=== PATIENT | male | born 1935 | race Caucasian/White ===

== ENCOUNTER 2017-02-09 03:57 | Inpatient (IN) | payer MEDICARE, OTHER ==
--- NOTE | ~2017-02-09 | PRECARD ---
H&P [facility] [address] [facility] [place]. [address] NAME: AKILA MCCURDY JR : 35 STATUS : ADM IN [facility]#: [id number] AGE: 81 ADM/REG DATE : 02/09/17 MR#: [id number] REPORT SERV DATE: 02/09/17 DICTATED BY: LEV GRAY DATE: 02/09/17 REPORT STATUS : Draft TRANSCRIBED BY: DEEPIKA DATE: 02/09/17 DATE OF ADMISSION: 02/09/2017 Mr. Akila Mccurdy junior is an 81-year-old gentleman, referred from the emergency room with acute inferior wall myocardial infarction. Mr. Mccurdy has no known coronary artery disease. He does have a history of diabetes. He developed chest discomfort at 1 a.m., the air ambulance was called. Upon their arrival ongoing chest discomfort. Blood pressure about 140/80, heart rate in the 40s. He has had ongoing discomfort in the last 3 hours. He describes 8/10 severity, radiated to the arm, with dyspnea and nausea, subsequent emesis. He has not had discomfort previously. PAST MEDICAL HISTORY: 1. Diabetes. 2. Hydrocephalus with a shunt placed two years ago at [facility]. MEDICINES: Uncertain. SOCIAL HISTORY: Denies alcohol or tobacco. No longer working. He is . FAMILY HISTORY: Noncontributory. REVIEW OF SYSTEMS: Complete review of systems obtained, pertinent negative and unremarkable except as noted above. No melena, hematochezia, or hemoptysis. PHYSICAL EXAMINATION: VITAL SIGNS: Blood pressure 130/80, heart rate 44. GENERAL: He appears acutely ill, pale, diaphoretic. HEENT: No xanthelasma; lips without cyanosis. LUNGS: Clear to auscultation, no wheezes, rales or rhonchi; good breath sounds. COR: No JVD or hepatojugular reflux, no murmurs, rubs or gallops, impulse mid clavicular line without carotid or abdominal bruits; normal S1 and S2. ABDOMEN: Bowel sounds positive, normal activity, without tenderness, masses or hepatosplenomegaly. EXTREMITIES: No edema, cyanosis. SKIN: Normal turgor. MS: Normal muscle strength, without kyphosis/scoliosis. NEURO/PSYCH: Alert and oriented x4, no apparent anxiety or depression. EKG from the field demonstrates sinus rhythm and inferior elevation. EKG could not be obtained yet at [facility], equipment malfunction. ASSESSMENT: Mr. Mccurdy is a very nice 81-year-old gentleman with acute inferior wall H&P PRE [address] [address] NAME: AKILA MCCURDY JR : 35 STATUS : ADM IN [facility]#: [id number] AGE: 81 ADM/REG DATE : 02/09/17 MR#: [id number] REPORT SERV DATE: 02/09/17 DICTATED BY: LEV GRAY DATE: 02/09/17 REPORT STATUS : Draft TRANSCRIBED BY: DEEPIKA DATE: 02/09/17 myocardial infarction and bradycardia. I discussed the risks, benefits, and alternatives of cardiac catheterization, coronary angioplasty, stent placement with Mr. Mccurdy. He understands and requests to proceed. JEVON/DEEPIKA Lev Gray M.D. / [id number] CC: Lev Gray M.D.
--- NOTE | ~2017-02-09 | DS ---
Discharge Summary [facility] [address] [place]. [address] NAME: AKILA NICK JR : 35 STATUS : DIS IN PAT#: [id number] AGE: 81 ADM/REG DATE : 02/09/17 MR#: [id number] REPORT SERV DATE: 02/24/17 DICTATED BY: LEV GRAY DATE: 02/23/17 REPORT STATUS : Draft TRANSCRIBED BY: DEEPIKA DATE: 02/23/17 Data Collection from hospitalization DISCHARGE DIAGNOSES: 1. Acute anterior wall myocardial infarction. 2. Bradycardia. 3. Diabetes mellitus. 4. Hydrocephalus with a shunt placed 2 years ago at [place]. CONSULTATIONS: None. PROCEDURES PERFORMED: Cardiac catheterization and PCI, 02/09/2017. MEDICATIONS: Aspirin 81 mg at bedtime, Sinemet 2 tablets three times a day, Lipitor 40 mg at bedtime, Coreg 3.125 mg twice daily, Plavix 75 mg daily, Pepcid 20 mg daily, Neurontin 100 mg three times a day, Novolin 40 units at bedtime, Novolin R 20 units before meals, levothyroxine sodium 100 mcg daily, Prinivil 5 mg daily, ProAir as needed, prednisone 10 mg taper as directed, Nitrostat 0.4 mg as directed, vitamin C one daily, vitamin E one daily, calcium 1 daily, and Cartia XT 240 mg daily. CONDITION AT DISCHARGE: Upon discharge, he did appear to be doing well and had no complaints. DISPOSITION: He had been discharged home to continue an 1800-calorie ADA diet with activity as discussed. He was to follow up with Dr. London Freeman on 03/04/2017. HOSPITAL COURSE: This 81-year-old male had been referred from the emergency room with an acute inferior wall myocardial infarction. He had no known coronary artery disease. He did have a history of diabetes. He developed chest discomfort at 1 a.m., and the air ambulance was called. Upon their arrival, ( ), ongoing chest discomfort. Blood pressure was about 140/80 and heart rate in the 40s. He had had ongoing chest discomfort in the last three hours, he described an 8/10 severity; this radiated to the arm ( ) with dyspnea and nausea and subsequent emesis. He had not had discomfort previously. He was admitted for further treatment. Upon admission to the hospital, he had been placed on cardiac syrup machine laborer orders. He was then taken to the cardiac syrup machine laborer where he did undergo the above cardiac catheterization and PCI. He did tolerate this well and was transferred to the recovery room. On the day following admission, he had no complaints of chest pain or shortness breath and did state that he had felt great. His lungs were clear to auscultation, and he did appear to be doing well. He was continued on supportive care. On 02/12/2016, he had no complaints of chest pain or shortness of breath and had continued to do well. He was in sinus rhythm. He did remain in stable condition, and on 02/12/2017, it was noted that he had fallen to the floor after hitting his bottom or hip and not hitting the bed. He had no discomfort and no tenderness noted. He did remain in stable condition and was then discharged with the above instructions. Information collected by: Erika Andrews Discharge Summary [address] [address] NAME: AKILA NICK JR : 35 STATUS : DIS IN PAT#: [id number] AGE: 81 ADM/REG DATE : 02/09/17 MR#: [id number] REPORT SERV DATE: 02/24/17 DICTATED BY: LEV GRAY DATE: 02/23/17 REPORT STATUS : Draft TRANSCRIBED BY: DEEPIKA DATE: 02/23/17 I submit the above information as my discharge summary. ADRIA/DEEPIKA Lev Gray M.D. / [id number] CC: Mari Mcfarland M.D.
[~2017-02-09 03:57] MED LIST: ASAB PO; ASPART INSULIN SC; B121000P IM; BACTROINT TOP; DETEMIR INSULIN SC; FLOMAX4 PO; IMDUR60 PO; LANTUS SC; LEVOTHYROXIN100 MCG PO; LIPITOR20 PO; LOP25 PO; MCZ125 PO; MCZ25 PO; NEUR100 PO; NITROSTAT0.4 MG SL; NOVOLOG SC; PEP20 PO; PRILOSEC40 MG PO; RAN500 PO; RAPAFLO PO; X25 PO; X5 PO
[2017-02-09 04:32] LABS: BASOPHILS 0.3 %; BASOPHILS ABSOLUTE 0.04 10/3/uL (0.0-0.16); EOSINOPHILS 3.1 %; ER CBC TAT 0 Hrs 00 Mins; HEMATOCRIT 40.8 % (40.0-51.0); HEMOGLOBIN 13.8 g/dL (13.6-17.8); IMMATURE GRANULOCYTES 0.6 %; IMMATURE GRANULOCYTES ABSOLUTE 0.08 10/3/uL (0.0-0.11); LYMPHOCYTES 27.4 %; LYMPHOCYTES ABSOLUTE 3.53 10/3/uL (0.67-4.30); MEAN CORPUS HGB CONC 33.8 g/dL (32.0-36.0); MEAN CORPUSCULAR VOLUME 91.7 fL (80-100); MEAN PLATELET VOLUME 9.8 fL (9.2-13.0); MONOCYTES 13.1 %; MONOCYTES ABSOLUTE 1.69 10/3/uL (0.21-1.20); NEUTROPHILS 55.5 %; NEUTROPHILS ABSOLUTE 7.16 10/3/uL (2.02-8.40); PLATELET COUNT 272 10/3/uL (150-400); RBC DISTRIBUTION WIDTH 13.1 % (12.0-16.0); RED CELL COUNT 4.45 10/6/uL (4.7-6.1); WHITE BLOOD CELLS 12.9 10/3/uL (4.5-10.5)
[2017-02-09 04:34] LABS: MANUAL DIFF NO %
[2017-02-09 04:44] LABS: PARTIAL THROMBO TIME 24.3 SEC (22.5-37.2); PROTIME (NOT ORD) 13.5 SEC (12.0-14.5)
[2017-02-09 04:50] LABS: BUN (BLOOD UREA NITROGEN) 28 MG/DL (6-23); CALCIUM, SERUM 9.6 MG/DL (8.5-10.4); CHLORIDE, SERUM 104 MMOL/L (96-112); CO2 (CARBON DIOXIDE) 28 MMOL/L (24-34); CREATININE 1.21 MG/DL (0.70-1.30); GFR AFRICAN AMERICAN 65 ML/MIN (>=60); GFR NON AFRICAN AMERICAN 56 ML/MIN (>=60); GLUCOSE, SERUM 129 MG/DL (60-99); SODIUM, SERUM 141 MMOL/L (135-148)
[2017-02-09 04:51] LABS: POTASSIUM, SERUM 4.4 MMOL/L (3.5-5.3)
[2017-02-09 04:52] LABS: CHEST PAIN PROFILE TAT 0 Hrs 01 Mins
[2017-02-09 07:19] LABS: BASOPHILS 0.3 %; BASOPHILS ABSOLUTE 0.04 10/3/uL (0.0-0.16); EOSINOPHILS ABSOLUTE 0.37 10/3/uL (0.0-0.53); HEMATOCRIT 43.1 % (40.0-51.0); HEMOGLOBIN 14.6 g/dL (13.6-17.8); IMMATURE GRANULOCYTES 0.5 %; IMMATURE GRANULOCYTES ABSOLUTE 0.06 10/3/uL (0.0-0.11); LYMPHOCYTES 21.7 %; LYMPHOCYTES ABSOLUTE 2.72 10/3/uL (0.67-4.30); MEAN CORPUS HGB CONC 33.9 g/dL (32.0-36.0); MEAN CORPUSCULAR HEMOGLOB 31.1 pg (26.0-34.0); MEAN CORPUSCULAR VOLUME 91.7 fL (80-100); MEAN PLATELET VOLUME 9.9 fL (9.2-13.0); MONOCYTES 11.4 %; MONOCYTES ABSOLUTE 1.42 10/3/uL (0.21-1.20); NEUTROPHILS 63.1 %; PLATELET COUNT 268 10/3/uL (150-400); RBC DISTRIBUTION WIDTH 13.1 % (12.0-16.0); WHITE BLOOD CELLS 12.5 10/3/uL (4.5-10.5)
[2017-02-09 07:22] LABS: MANUAL DIFF NO %
[2017-02-09 07:37] LABS: BUN (BLOOD UREA NITROGEN) 25 MG/DL (6-23); CALCIUM, SERUM 9.4 MG/DL (8.5-10.4); CHLORIDE, SERUM 100 MMOL/L (96-112); CHOL/HDL RATIO(NOT ORDER) 3.7 (0-5); CHOLESTEROL 191 MG/DL (< 200); CK-MB 32.1 NG/ML; CKMB INDEX (NOT ORD) 7.1; CO2 (CARBON DIOXIDE) 29 MMOL/L (24-34); CPK 451 U/L (0-200); CREATININE 1.17 MG/DL (0.70-1.30); GFR AFRICAN AMERICAN 67 ML/MIN (>=60); GFR NON AFRICAN AMERICAN 58 ML/MIN (>=60); GLUCOSE, SERUM 115 MG/DL (60-99); HDL CHOLESTEROL 52 MG/DL (> 39); LDL CHOLESTEROL 130 MG/DL (< 130); NON-HDL CHOLESTEROL 139 MG/DL (< 160); POTASSIUM, SERUM 3.5 MMOL/L (3.5-5.3); SODIUM, SERUM 137 MMOL/L (135-148); TRIGLYCERIDE 45 MG/DL (< 150)
[2017-02-09 15:13] LABS: BUN (BLOOD UREA NITROGEN) 23 MG/DL (6-23); CHLORIDE, SERUM 96 MMOL/L (96-112); CK-MB 67.8 NG/ML; CKMB INDEX (NOT ORD) 9.8; CO2 (CARBON DIOXIDE) 32 MMOL/L (24-34); CPK 694 U/L (0-200); CREATININE 1.16 MG/DL (0.70-1.30); GFR AFRICAN AMERICAN 68 ML/MIN (>=60); GFR NON AFRICAN AMERICAN 59 ML/MIN (>=60); GLUCOSE, SERUM 276 MG/DL (60-99); POTASSIUM, SERUM 3.8 MMOL/L (3.5-5.3); SODIUM, SERUM 136 MMOL/L (135-148)
[2017-02-09] MEDS ORDERED: P10 PO (17:17)
[2017-02-09] MEDS ORDERED: VITAMIN C PO (17:18)
[2017-02-09] MEDS ORDERED: NITROSTAT0.4 MG SL ×2 (17:18→17:22)
[2017-02-09] MEDS ORDERED: PROAIR HFA PO (17:18)
[2017-02-09] MEDS ORDERED: IMDUR120 PO (17:18)
[2017-02-09] MEDS ORDERED: ASAB PO (17:19)
[2017-02-09] MEDS ORDERED: INSNOVR SC (17:19)
[2017-02-09] MEDS ORDERED: CALCIUM PO (17:19)
[2017-02-09] MEDS ORDERED: VITAMIN E PO (17:19)
[2017-02-09] MEDS ORDERED: CARTIA XT240 MG/24 PO (17:20)
[2017-02-09] MEDS ORDERED: NEUR100 PO (17:20)
[2017-02-09] MEDS ORDERED: INSNOVN SC (17:20)
[2017-02-09] MEDS ORDERED: LEVOTHYROXIN100 MCG PO (17:20)
[2017-02-09] MEDS ORDERED: SIN25 PO (17:21)
[2017-02-09] MEDS ORDERED: LOP25 PO (17:21)
[2017-02-09] MEDS ORDERED: PEP20 PO (17:22)
[2017-02-09 22:38] LABS: CK-MB 38.9 NG/ML
[2017-02-09 22:39] LABS: CKMB INDEX (NOT ORD) 8.3
[2017-02-10 04:52] LABS: CALCIUM, SERUM 9.1 MG/DL (8.5-10.4); CHLORIDE, SERUM 98 MMOL/L (96-112); CK-MB 20.8 NG/ML; CPK 299 U/L (0-200); CREATININE 1.14 MG/DL (0.70-1.30); GFR AFRICAN AMERICAN 70 ML/MIN (>=60); GFR NON AFRICAN AMERICAN 60 ML/MIN (>=60); GLUCOSE, SERUM 249 MG/DL (60-99); POTASSIUM, SERUM 4.3 MMOL/L (3.5-5.3); SODIUM, SERUM 133 MMOL/L (135-148)
[2017-02-10 04:56] LABS: BUN (BLOOD UREA NITROGEN) 19 MG/DL (6-23); CO2 (CARBON DIOXIDE) 27 MMOL/L (24-34)
[2017-02-11 05:21] LABS: CREATININE 1.33 MG/DL (0.70-1.30)
[2017-02-12 05:47] LABS: CALCIUM, SERUM 9.6 MG/DL (8.5-10.4); CHLORIDE, SERUM 97 MMOL/L (96-112); CO2 (CARBON DIOXIDE) 26 MMOL/L (24-34); GFR AFRICAN AMERICAN 59 ML/MIN (>=60); GFR NON AFRICAN AMERICAN 51 ML/MIN (>=60); GLUCOSE, SERUM 227 MG/DL (60-99); POTASSIUM, SERUM 4.3 MMOL/L (3.5-5.3); SODIUM, SERUM 132 MMOL/L (135-148)
[2017-02-12 05:56] LABS: BUN (BLOOD UREA NITROGEN) 23 MG/DL (6-23)
[2017-02-12] MEDS ORDERED: LIPITOR40 PO (08:58)
[2017-02-12] MEDS ORDERED: PLAVIX PO (08:58)
[2017-02-12] MEDS ORDERED: COREG3 PO (08:59)
[2017-02-12] MEDS ORDERED: PRIN5 PO (09:00)
== END 2017-02-12 10:35 | disposition home or self-care (01) | DRG 247 ==
LOC: SSU2 03:57 → CCU 06:01 → 5NO 02-10 15:34
PROVIDERS: Emergency Medicine; Internal Medicine Cardiovascular Disease
PROC: 027034Z Dilation of Coronary Artery, One Artery with Drug-eluting Intraluminal Device, Percutaneous Approach (ICD-10-PCS; principal; 2017-02-09)
PROC: B2151ZZ Fluoroscopy of Left Heart using Low Osmolar Contrast (ICD-10-PCS; 2017-02-09)
PROC: B2111ZZ Fluoroscopy of Multiple Coronary Arteries using Low Osmolar Contrast (ICD-10-PCS; 2017-02-09)
PROC: 4A023N7 Measurement of Cardiac Sampling and Pressure, Left Heart, Percutaneous Approach (ICD-10-PCS; 2017-02-09)
PROC: 5A1223Z Performance of Cardiac Pacing, Continuous (ICD-10-PCS; 2017-02-09)
DX: I21.19 ST elevation (STEMI) myocardial infarction involving other coronary artery of inferior wall (principal); G91.9 Hydrocephalus, unspecified; E11.9 Type 2 diabetes mellitus without complications; I25.10 Atherosclerotic heart disease of native coronary artery without angina pectoris; E78.00 Pure hypercholesterolemia, unspecified; Z79.4 Long term (current) use of insulin; Z87.891 Personal history of nicotine dependence; I10 Essential (primary) hypertension
CPT/HCPCS: 71010; 80048; 80061; 82550; 82553; 82565; 82962; 83735; 84484; 85025; 85347; 85610; 85730; 87641; 93005; 93458; 96374; 99152; 99153; 99285; A9270-GY; C1725; C1760; C1769; C1874; C1887; C1894; C9606; J0583; J2250; J2405; J3010; Q9967